=== PATIENT | female | born 1940 | race American Indian/Alaskan Native ===

== ENCOUNTER → 2017-04-12 | Outpatient (CLI) | payer MEDICARE, OTHER ==
[~2017-04-12] MED LIST: ASPI81CH PO; CALCIUM PO; IRON PO; METPRE4DP PO; NAPR500 PO; Norco 5-325 Ta1 EACH PO; PRAHYD1AE TOP; VITAMIN C PO; VITAMIN D PO
== END | disposition home or self-care (01) ==
LOC: LAB 16:18
DX: L03.213 Periorbital cellulitis (principal)
CPT/HCPCS: 87070; 87077; 87147; 87186; 87205

== ENCOUNTER → 2017-04-14 | Outpatient (CLI) | payer MEDICARE, OTHER | LOC: LAB SHORT 14:22 | DX: L03.213 Periorbital cellulitis (principal) | CPT/HCPCS: 87070; 87075; 87077; 87147; 87186; 87205 ==

== ENCOUNTER 2017-05-25 09:43 | Emergency (ER) | payer MEDICARE, OTHER ==
[~2017-05-25] VITALS: Ht 170.2 cm; Wt 66.7 kg
[~2017-05-25 09:43] MED LIST changes: -PRAHYD1AE TOP
[2017-05-25] MEDS ORDERED: PRAHYD1AE TOP (11:54)
== END 2017-05-25 12:24 | disposition home or self-care (01) ==
LOC: ER 09:43
DX: K62.3 Rectal prolapse (principal); Z88.8 Allergy status to other drugs, medicaments and biological substances; Z91.041 Radiographic dye allergy status

== ENCOUNTER 2018-08-04 19:23 | Emergency (ER) | payer MEDICARE, OTHER ==
[~2018-08-04] VITALS: Ht 170.2 cm; Wt 66.7 kg
[~2018-08-04 19:23] MED LIST changes: +PRAHYD1AE TOP
[2018-08-04] MEDS ORDERED: TOCO1000 PO (19:45)
[2018-08-04] MEDS ORDERED: ASPI81CH PO (19:45)
[2018-08-04] MEDS ORDERED: ALEVAZOL56.7 GM TOP (20:12)
== END 2018-08-04 20:17 | disposition home or self-care (01) ==
LOC: ER 19:23
DX: R21 Rash and other nonspecific skin eruption (principal); Z88.8 Allergy status to other drugs, medicaments and biological substances; Z91.041 Radiographic dye allergy status; Z79.899 Other long term (current) drug therapy; Z79.82 Long term (current) use of aspirin

== ENCOUNTER → 2019-03-08 | Outpatient (CLI) | payer MEDICARE, OTHER ==
[~2019-03-08] MED LIST changes: +ALEVAZOL56.7 GM TOP; +TOCO1000 PO
== END | disposition home or self-care (01) ==
LOC: LAB EV 13:32 → LAB SHORT 13:32
DX: L03.011 Cellulitis of right finger (principal)
CPT/HCPCS: 87070; 87075; 87077; 87147; 87186; 87205

== ENCOUNTER 2022-01-18 07:52 | Day surgery (SDC) | payer MEDICARE, OTHER ==
[~2022-01-18] VITALS: Ht 170.2 cm; Wt 59.9 kg
[~2022-01-18 07:52] MED LIST changes: +Oxybutynin Chlor5 M1 PO
--- NOTE | 2022-01-18 08:34 | NUR ---
01/18/22 0834 Eve Leger AT 0819 PLEDGET AT [id number]
== END 2022-01-18 09:41 | disposition home or self-care (01) ==
LOC: ORSCSDS 07:52
PROVIDERS: Ophthalmology
PROC: 08DJ3ZZ Extraction of Right Lens, Percutaneous Approach (ICD-10-PCS; principal; 2022-01-18 09:00)
DX: H25.13 Age-related nuclear cataract, bilateral (principal); Z79.82 Long term (current) use of aspirin; Z79.899 Other long term (current) drug therapy
CPT/HCPCS: J2001; J2250; J3010; J3301; J7040; V2632

== ENCOUNTER 2022-03-22 07:27 | Day surgery (SDC) | payer MEDICARE, OTHER ==
[~2022-03-22] VITALS: Ht 170.2 cm; Wt 61.3 kg
--- NOTE | 2022-03-22 08:26 | NUR ---
03/22/22 0826 Kim Womack AT 0814 PLEDGET [id number]
--- NOTE | 2022-03-22 09:19 | NUR ---
03/22/22 0919 Jasiel Obando IODINE PREPPED USED DURING CASE. PT HAD RECENT PREVIOUS CATARACT SURGERY AND IODINE WAS USED IN THAT CASE WITHOUT COMPLICATION.
== END 2022-03-22 09:52 | disposition home or self-care (01) ==
LOC: ORSCSDS 07:27
PROVIDERS: Ophthalmology
PROC: 08DK3ZZ Extraction of Left Lens, Percutaneous Approach (ICD-10-PCS; principal; 2022-03-22 09:00)
DX: H25.12 Age-related nuclear cataract, left eye (principal); Z96.1 Presence of intraocular lens; Z79.82 Long term (current) use of aspirin
CPT/HCPCS: J2001; J2250; J3010; J3301; J7040; V2632

== ENCOUNTER 2022-08-14 13:20 | Observation (INO) | payer MEDICARE, OTHER ==
[~2022-08-14] VITALS: Ht 172.7 cm; Wt 60.6 kg
[2022-08-14 14:04] LABS: BASOPHILS ABSOLUTE AUTO 0.03 K/mm3 (0.00-0.23); BASOPHILS PERCENT AUTO 1 % (0-2); EOSINOPHILS PERCENT AUTO 3 % (0-6); Hemoglobin 14.7 g/dL (11.5-16.0); IMMATURE GRAN ABSOLUTE AUTO 0.01 K/mm3 (0.00-0.10); IMMATURE GRAN PERCENT AUTO 0 % (0-1); LYMPHOCYTES ABSOLUTE AUTO 1.65 K/mm3 (0.84-5.20); LYMPHOCYTES PERCENT AUTO 44 % (21-46); MONOCYTES ABSOLUTE AUTO 0.43 K/mm3 (0.16-1.47); MONOCYTES PERCENT AUTO 12 % (4-13); Mean Corpuscular HGB 33.1 pg (26.0-34.0); Mean Corpuscular HGB Conc 33.4 g/dL (31.5-36.5); Mean Corpuscular Volume 99 fL (80-100); Mean Platelet Volume 12.2 fL (9.1-12.4); NEUTROPHILS ABSOLUTE AUTO 1.53 K/mm3 (1.96-9.15); NEUTROPHILS PERCENT AUTO 41 % (41-73); Platelet Count 137 K/mm3 (150-400); RDW Coefficient Variation 12.8 % (11.7-14.2); RDW Standard Deviation 46.7 fL (35.1-46.3); Red Blood Cell Count 4.44 M/mm3 (3.80-5.20); White Blood Cell Count 3.75 K/mm3 (4.00-11.30)
[2022-08-14 14:23] LABS: Albumin, Blood 3.9 g/dL (3.4-5.0); Albumin/Globulin Ratio 1.2 (0.8-1.8); Bilirubin, Total 0.5 mg/dL (0.1-1.0); Bun/Creatinine Ratio 29.4 (12.0-20.0); Calcium, Blood 9.5 mg/dL (8.5-10.1); Creatinine, Blood 0.65 mg/dL (0.40-1.00); Globulin, Blood 3.2 g/dL (2.2-4.0); Total Protein, Blood 7.1 g/dL (6.4-8.2)
[2022-08-14 15:12] LABS: Prothrombin Time Results 10.5 Sec (9.7-11.5)
[2022-08-14 16:17] LABS: Source, Urine Clean Catch
[2022-08-14 16:29] LABS: Appearance, Urine Clear (Clear); Bilirubin, Urine Neg (Neg); Blood, Urine 2+ (Neg); Glucose Qualitative, Urine Neg (Neg); Ketones, Urine Neg (Neg); Leukocyte Esterase, Urine Neg (Neg); Nitrite, Urine Neg (Neg); Protein, Urine Neg (Neg); Specific Gravity, Urine 1.005 (1.003-1.022); Urobilinogen, Urine NORM (Normal)
[2022-08-14 16:41] LABS: Color, Urine Pale Yellow (P-Yellow)
[2022-08-14 16:44] LABS: Bacteria Rare /hpf; Squamous Epithelial Cells Rare /hpf (Few); White Blood Cells, Urine 0-2 /hpf (0-5)
[2022-08-15 04:28] VITALS: BP 114/76
[2022-08-15 05:07] LABS: Hematocrit 39.8 % (33.0-51.0); Hemoglobin 13.4 g/dL (11.5-16.0); Mean Corpuscular HGB 32.9 pg (26.0-34.0); Mean Corpuscular HGB Conc 33.7 g/dL (31.5-36.5); Mean Corpuscular Volume 98 fL (80-100); Mean Platelet Volume 12.8 fL (9.1-12.4); Platelet Count 124 K/mm3 (150-400); RDW Coefficient Variation 12.7 % (11.7-14.2); RDW Standard Deviation 45.2 fL (35.1-46.3); Red Blood Cell Count 4.07 M/mm3 (3.80-5.20); White Blood Cell Count 2.94 K/mm3 (4.00-11.30)
--- NOTE | 2022-08-15 05:16 | NUR ---
SHIFT SUMMARY NO NEW ISSUES. PT REPORTED [place] WAS GONE. PT ARRIVED TO UNIT IN NO DISTRESS. PT DENIES DIZZINESS OR BLURRED VISION. PT NEURO'S ARE INTACT AND STABLE ON FEET. PT HAS BEEN SLEEPING FOR MOST OF SHIFT. CALL LIGHT IN REACH.
[2022-08-15 05:54] LABS: CHOL/HDL RATIO 2.4; Cholesterol 169 mg/dL (50-200); HDL Cholesterol 70 mg/dL (>39); LDL/HDL RATIO 1.2; Low Density Lipoprotein Chol 85 mg/dL (0-110); Triglycerides 72 mg/dL (30-160); Very Low Density Lipoprot Chol 14 mg/dL (6-32)
[2022-08-15 07:32] VITALS: BP 125/74
--- NOTE | 2022-08-15 10:43 | NUR ---
DISCHARGE NOTE- PT WAS GIVEN VERBAL AND WRITTEN DISCHARGE INSTRUCTIONS AND ACKNOWLEDGED UNDERSTANDING OF THEM. IV AND TELE DC'D AT THE TIME OF DISCHARGE EDUCATION. PT HAD NO FURTHER QUESTIONS AT THIS TIME AND DECLINED ASSISTANCE TO GET READY TO GO. PT CALLING HER FRIEND FOR A RIDE HOME NOW. INSTRUCTED HER TO PUSH THE CALL BUTTON ONCE HER FRIEND ARRIVES AND SHE WILL BE ESCORTED OUT VIA WC BY THE [employer]. NO CURRENT S&S OF DISTRESS NOTED.
== END 2022-08-15 11:43 | disposition home or self-care (01) ==
LOC: ER 13:20 → MEDS 13:21 → ENPENDDIS 08-15 10:05 → MEDS 08-15 11:43
PROVIDERS: Nurse Practitioner Acute Care; Physician Assistant; Student in an Organized Health Care Education/Training Program; ADMIT Student in an Organized Health Care Education/Training Program
DX: H53.462 Homonymous bilateral field defects, left side (principal); Z96.641 Presence of right artificial hip joint; Z91.041 Radiographic dye allergy status
CPT/HCPCS: 36415; 70450; 70551; 80053; 80061; 81001; 82947; 83036; 85025; 85027; 85610; 85651; 93005; 93010; 93880; 99285-25; A9270

== ENCOUNTER 2022-11-06 17:50 | Inpatient (IN) | payer MEDICARE, OTHER ==
[~2022-11-06] VITALS: Ht 165.1 cm; Wt 70.0 kg
[2022-11-06 18:38] LABS: BASOPHILS ABSOLUTE AUTO 0.04 K/mm3 (0.00-0.23); BASOPHILS PERCENT AUTO 1 % (0-2); EOSINOPHILS PERCENT AUTO 3 % (0-6); Hematocrit 40.8 % (33.0-51.0); Hemoglobin 13.7 g/dL (11.5-16.0); IMMATURE GRAN PERCENT AUTO 0 % (0-1); LYMPHOCYTES ABSOLUTE AUTO 1.22 K/mm3 (0.84-5.20); LYMPHOCYTES PERCENT AUTO 32 % (21-46); MONOCYTES ABSOLUTE AUTO 0.43 K/mm3 (0.16-1.47); MONOCYTES PERCENT AUTO 11 % (4-13); Mean Corpuscular HGB 32.9 pg (26.0-34.0); Mean Corpuscular HGB Conc 33.6 g/dL (31.5-36.5); Mean Corpuscular Volume 98 fL (80-100); Mean Platelet Volume 12.5 fL (9.1-12.4); NEUTROPHILS ABSOLUTE AUTO 1.99 K/mm3 (1.96-9.15); NEUTROPHILS PERCENT AUTO 53 % (41-73); Platelet Count 137 K/mm3 (150-400); RDW Coefficient Variation 13.7 % (11.7-14.2); RDW Standard Deviation 50.4 fL (35.1-46.3); Red Blood Cell Count 4.16 M/mm3 (3.80-5.20); White Blood Cell Count 3.78 K/mm3 (4.00-11.30)
[2022-11-06 18:46] LABS: Source, Urine Clean Catch
[2022-11-06 18:49] LABS: Appearance, Urine Hazy (Clear); Bilirubin, Urine Neg (Neg); Blood, Urine 2+ (Neg); Color, Urine Yellow (P-Yellow); Glucose Qualitative, Urine Neg (Neg); Ketones, Urine 1+ (Neg); Leukocyte Esterase, Urine Neg (Neg); Nitrite, Urine Neg (Neg); Protein, Urine 2+ (Neg); Specific Gravity, Urine 1.025 (1.003-1.022); Urobilinogen, Urine NORM (Normal)
[2022-11-06 19:04] LABS: Albumin, Blood 3.9 g/dL (3.4-5.0); Albumin/Globulin Ratio 1.4 (0.8-1.8); Bilirubin, Total 0.6 mg/dL (0.1-1.0); Bun/Creatinine Ratio 20.8 (12.0-20.0); Calcium, Blood 9.3 mg/dL (8.5-10.1); Creatinine, Blood 0.77 mg/dL (0.40-1.00); Globulin, Blood 2.7 g/dL (2.2-4.0); Total Protein, Blood 6.6 g/dL (6.4-8.2)
[2022-11-06 19:08] LABS: D-Dimer, Quantitative 3.53 mg/L FEU (0.00-0.52); International Normalized Ratio 1.11; Prothrombin Time Results 11.6 Sec (9.7-11.5)
[2022-11-06 19:18] LABS: Magnesium, Blood 2.1 mg/dL (1.6-2.4)
[2022-11-06 19:19] LABS: Amorphous Mod (0-Heavy); Bacteria Few /hpf; Mucus Light (0-Heavy); Squamous Epithelial Cells Few /hpf (Few); White Blood Cells, Urine 0-2 /hpf (0-5)
[2022-11-06 19:20] LABS: Phosphorus, Blood 3.5 mg/dL (2.5-4.9); Thyroid Stimulating Hormone 1.84 uIU/mL (0.360-4.800)
[2022-11-06] MEDS ORDERED: K-Dur10 MEQ PO (19:22)
[2022-11-06] MEDS ORDERED: TRIDERM28.4 GM TOP (19:22)
[2022-11-06] MEDS ORDERED: FUROSEMIDE20 MG PO (19:22)
[2022-11-06 19:31] LABS: Influenza A, PCR NEGATIVE (NEGATIVE); Influenza B, PCR NEGATIVE (NEGATIVE); Resp Syncytial Virus, PCR NEGATIVE (NEGATIVE); SARS-Cov-2 (COVID-19) PCR, MMC NEGATIVE (NEGATIVE)
[2022-11-06 22:01] VITALS: BP 126/94
[2022-11-07 03:58] VITALS: BP 118/89
[2022-11-07 05:15] LABS: BASOPHILS ABSOLUTE AUTO 0.03 K/mm3 (0.00-0.23); BASOPHILS PERCENT AUTO 1 % (0-2); EOSINOPHILS ABSOLUTE AUTO 0.13 K/mm3 (0.00-0.68); EOSINOPHILS PERCENT AUTO 5 % (0-6); Hematocrit 38.5 % (33.0-51.0); Hemoglobin 12.5 g/dL (11.5-16.0); IMMATURE GRAN PERCENT AUTO 0 % (0-1); LYMPHOCYTES ABSOLUTE AUTO 1.23 K/mm3 (0.84-5.20); LYMPHOCYTES PERCENT AUTO 51 % (21-46); MONOCYTES ABSOLUTE AUTO 0.35 K/mm3 (0.16-1.47); MONOCYTES PERCENT AUTO 15 % (4-13); Mean Corpuscular HGB 32.7 pg (26.0-34.0); Mean Corpuscular HGB Conc 32.5 g/dL (31.5-36.5); Mean Corpuscular Volume 101 fL (80-100); Mean Platelet Volume 12.9 fL (9.1-12.4); NEUTROPHILS ABSOLUTE AUTO 0.68 K/mm3 (1.96-9.15); NEUTROPHILS PERCENT AUTO 28 % (41-73); Platelet Count 113 K/mm3 (150-400); RDW Coefficient Variation 13.8 % (11.7-14.2); RDW Standard Deviation 50.7 fL (35.1-46.3); Red Blood Cell Count 3.82 M/mm3 (3.80-5.20); White Blood Cell Count 2.42 K/mm3 (4.00-11.30)
--- NOTE | 2022-11-07 05:33 | NUR ---
NO ACUTE CHANGES AT THIS TIME. PT IS AOX3, BUT SEEMS VERY TIRED. PT WAS ABLE TO BE A ONE PERSON TO BEDSIDE COMMODE AND DID WELL. PT APPEARS TO BE MOSTLY CONTENENT OF URING. PT USES CALL LIGHT APPROPRIATELY. NO DISTRESS NOTED AT THIS TIME WILL CONTINUE TO MONITOR.
[2022-11-07 05:38] LABS: Albumin, Blood 3.2 g/dL (3.4-5.0); Albumin/Globulin Ratio 1.5 (0.8-1.8); Bilirubin, Total 0.7 mg/dL (0.1-1.0); Bun/Creatinine Ratio 20.5 (12.0-20.0); Calcium, Blood 8.4 mg/dL (8.5-10.1); Creatinine, Blood 0.64 mg/dL (0.40-1.00); Globulin, Blood 2.2 g/dL (2.2-4.0); Magnesium, Blood 1.9 mg/dL (1.6-2.4); Potassium, Blood 3.8 mmol/L (3.5-5.5); Total Protein, Blood 5.4 g/dL (6.4-8.2)
[2022-11-07 05:57] LABS: BASOPHILS PERCENT MAN 0 % (0-2); EOSINOPHILS ABSOLUTE MAN 0.04 K/mm3 (0.00-0.68); EOSINOPHILS PERCENT MAN 2 % (0-6); LYMPHOCYTES PERCENT MAN 54 % (21-46); MONOCYTES ABSOLUTE MAN 0.19 K/mm3 (0.16-1.47); MONOCYTES PERCENT MAN 8 % (4-13); NEUTROPHILS ABSOLUTE MAN 0.87 K/mm3 (1.96-9.15); SEG NEUTROPHILS PERCENT MAN 36 % (41-73); TOTAL CELLS COUNTED 100
[2022-11-07 07:19] VITALS: BP 130/82
[2022-11-07 13:11] LABS: Source, Urine Clean Catch
[2022-11-07 13:26] LABS: Appearance, Urine Clear (Clear); Bilirubin, Urine Neg (Neg); Blood, Urine 2+ (Neg); Glucose Qualitative, Urine Neg (Neg); Ketones, Urine Neg (Neg); Leukocyte Esterase, Urine Neg (Neg); Nitrite, Urine Neg (Neg); Protein, Urine Neg (Neg); Specific Gravity, Urine 1.015 (1.003-1.022); Urobilinogen, Urine NORM (Normal)
[2022-11-07 13:46] LABS: Color, Urine Pale Yellow (P-Yellow)
[2022-11-07 13:48] LABS: Bacteria Few /hpf; Squamous Epithelial Cells Few /hpf (Few); White Blood Cells, Urine 0-2 /hpf (0-5)
[2022-11-07 15:36] VITALS: BP 105/77
[2022-11-07] MEDS ORDERED: ATOR10 PO (16:14)
[2022-11-07] MEDS ORDERED: ASPI81CH PO (16:14)
[2022-11-07] MEDS ORDERED: METO25ER PO (16:14)
[2022-11-07] MEDS ORDERED: XARELTO20 MG PO (16:15)
--- NOTE | 2022-11-07 16:25 | NUR ---
Pt resting in bed upon arrival. Primary AMANUEL Elliott going over D/C instructions. Brief supportive visit. Brief discussion regarding POLST and AD. Encourage Pt to discuss with family and consider completing. Provided Palliative Care contact information for any questions or concerns and instructed to discuss with PCP. Provided both AD and POLST. Pt and Primary AMANUEL Elliott report no concerns at this time. Ended visit to allow D/C education to continue. Palliative Care will remain available
--- NOTE | 2022-11-07 16:47 | NUR ---
PT AWAKE DURING SHIFT REPORT THIS AM, ADMITTED LAST NIGHT FOR APHASIA. SYMPTOMS RESOLVING AND PT ABLE TO SPEAK CLEARLY AND ANS APPROPRIATELY, WITH SPEECH AND THINKING CLEARING FURTHER THRU OUT THE MORNING. PT CLEARED BY SPEECH THERAPY AND ABLE TO WORK WITH PT/OT WELL. ECHO BEING DONE IN WHEN DR ERNST IN TO SEE PT. DR ERNST ALSO RETURNED A COUPLE OF TIMES LATER TO DISCUSS PLAN OF CARE. PT WANTING TO GO HOME AND REPORTED TO DR ERNST AND THIS RN THAT SHE HAD 2 NURSE FRIENDS TO ASSIST HER WHEN SHE GOT HOME. FRIEND NEELIMA CALLED TO PICK PT UP FOR RIDE HOME. MEDS FAXED TO [facility] PER PT REQUEST. PHARMACIST THEN IN TO PT AND REVIEWED NEW HOME MEDICATIONS. PT VERBALIZED UNDERSTANDING. MEDICATIONS AND D/C INSTRUCTIONS REVIEWED WITH PT AGAIN PRIOR TO LEAVING. IV SITES D/C'D WNL'S. PT ABLE TO DRESS HERSELF AND THEN ASSISTED OUT VIA W/C TO FRIEND NEELIMA, WAITING OUTSIDE. ALL BELONGINGS WENT WITH PT.
== END 2022-11-07 16:46 | disposition home or self-care (01) | DRG 69 ==
LOC: ER 17:50 → MEDS 17:51
PROVIDERS: Emergency Medicine; Student in an Organized Health Care Education/Training Program; ADMIT Student in an Organized Health Care Education/Training Program
DX: G45.9 Transient cerebral ischemic attack, unspecified (principal); R47.01 Aphasia; N39.0 Urinary tract infection, site not specified; I48.91 Unspecified atrial fibrillation; R79.1 Abnormal coagulation profile; G31.84 Mild cognitive impairment of uncertain or unknown etiology; I77.810 Thoracic aortic ectasia; R60.0 Localized edema; Z96.641 Presence of right artificial hip joint; D72.819 Decreased white blood cell count, unspecified; G43.909 Migraine, unspecified, not intractable, without status migrainosus; D69.6 Thrombocytopenia, unspecified; R79.89 Other specified abnormal findings of blood chemistry; E11.9 Type 2 diabetes mellitus without complications; Z20.822 Contact with and (suspected) exposure to COVID-19; Z79.82 Long term (current) use of aspirin; Z79.899 Other long term (current) drug therapy; Z79.01 Long term (current) use of anticoagulants; Z98.49 Cataract extraction status, unspecified eye; Z87.19 Personal history of other diseases of the digestive system; Z90.49 Acquired absence of other specified parts of digestive tract; Z98.890 Other specified postprocedural states; Z91.041 Radiographic dye allergy status; Z88.8 Allergy status to other drugs, medicaments and biological substances; Z60.2 Problems related to living alone
CPT/HCPCS: 0241U; 36415; 70450; 71046; 71250; 74176; 80053; 81001; 82947; 83605; 83735; 84100; 84443; 84484; 85025; 85379; 85520; 85610; 85730; 87040; 92523; 93005; 93010; 93306; 96365; 96366; 96367; 96375; 99285-25; A9270; G0378; J0696; J1644

== ENCOUNTER 2022-11-22 14:51 | Emergency (ER) | payer MEDICARE, OTHER ==
[~2022-11-22] VITALS: Ht 170.2 cm; Wt 63.5 kg
[~2022-11-22 14:51] MED LIST changes: +ATOR10 PO; +FUROSEMIDE20 MG PO; +K-Dur10 MEQ PO; +METO25ER PO; +TRIDERM28.4 GM TOP; +XARELTO20 MG PO
[2022-11-22] MEDS ORDERED: FUROSEMIDE20 MG PO (15:32)
[2022-11-22] MEDS ORDERED: K-Dur10 MEQ (15:32)
[2022-11-22 15:44] LABS: BASOPHILS ABSOLUTE AUTO 0.02 K/mm3 (0.00-0.23); BASOPHILS PERCENT AUTO 1 % (0-2); EOSINOPHILS ABSOLUTE AUTO 0.08 K/mm3 (0.00-0.68); EOSINOPHILS PERCENT AUTO 2 % (0-6); Hematocrit 40.9 % (33.0-51.0); Hemoglobin 13.5 g/dL (11.5-16.0); IMMATURE GRAN ABSOLUTE AUTO 0.01 K/mm3 (0.00-0.10); IMMATURE GRAN PERCENT AUTO 0 % (0-1); LYMPHOCYTES ABSOLUTE AUTO 1.41 K/mm3 (0.84-5.20); LYMPHOCYTES PERCENT AUTO 41 % (21-46); MONOCYTES ABSOLUTE AUTO 0.45 K/mm3 (0.16-1.47); MONOCYTES PERCENT AUTO 13 % (4-13); Mean Corpuscular HGB 33.1 pg (26.0-34.0); Mean Corpuscular Volume 100 fL (80-100); Mean Platelet Volume 12.5 fL (9.1-12.4); NEUTROPHILS ABSOLUTE AUTO 1.45 K/mm3 (1.96-9.15); NEUTROPHILS PERCENT AUTO 42 % (41-73); Platelet Count 131 K/mm3 (150-400); RDW Coefficient Variation 13.2 % (11.7-14.2); RDW Standard Deviation 48.3 fL (35.1-46.3); Red Blood Cell Count 4.08 M/mm3 (3.80-5.20); White Blood Cell Count 3.42 K/mm3 (4.00-11.30)
[2022-11-22 15:58] LABS: Albumin, Blood 3.8 g/dL (3.4-5.0); Albumin/Globulin Ratio 1.5 (0.8-1.8); Bilirubin, Total 0.8 mg/dL (0.1-1.0); Calcium, Blood 9.2 mg/dL (8.5-10.1); Creatinine, Blood 0.81 mg/dL (0.40-1.00); Globulin, Blood 2.6 g/dL (2.2-4.0); Potassium, Blood 4.2 mmol/L (3.5-5.5); Total Protein, Blood 6.4 g/dL (6.4-8.2)
[2022-11-22 17:57] LABS: Magnesium, Blood 2.1 mg/dL (1.6-2.4); Phosphorus, Blood 3.6 mg/dL (2.5-4.9)
[2022-11-22 18:45] VITALS: BP 119/94
== END 2022-11-22 19:20 | disposition home or self-care (01) ==
LOC: ER 14:51
PROVIDERS: Emergency Medicine; Physician Assistant
DX: I48.91 Unspecified atrial fibrillation (principal); E11.9 Type 2 diabetes mellitus without complications; Z88.8 Allergy status to other drugs, medicaments and biological substances; Z91.041 Radiographic dye allergy status; Z79.899 Other long term (current) drug therapy; Z79.01 Long term (current) use of anticoagulants; Z79.82 Long term (current) use of aspirin
CPT/HCPCS: 71046; 80053; 83735; 83880; 84100; 84484; 85025; 93005; 93010; 99285-25

== ENCOUNTER 2022-12-14 12:06 | Day surgery (SDC) | payer MEDICARE, OTHER ==
[2022-12-14] VITALS (14 sets, daily range): BP systolic 102–131; BP diastolic 78–103
[~2022-12-14] VITALS: Ht 170.2 cm; Wt 64.9 kg
[~2022-12-14 12:06] MED LIST changes: +K-Dur10 MEQ
--- NOTE | 2022-12-14 12:36 | NUR ---
PT TO ROOM VIA WHEEL CHAIR, ABLE TO STAND AND TRANSFER AND GET SELF DRESSED INTO GOWN. PLACED ON MERCHANDISING CONSULTANT, CONTINUES IN AFIB, HR LOW 100S. 20G IV PLACED TO RAC. NS INFUSING AT TKO. CURRENTLY ON RA.
--- NOTE | 2022-12-14 13:03 | NUR ---
NOELLE PROCEDURE ATTEMPTED BY DR. THORPE, ABORTED AFTER INABILITY TO EASILY PASS PROBE. PT. NOTED TO HAVE BLOOD TINGED SPUTUM. DROWSY, BUT DOES RESPOND TO VERBAL STIMULI. PLAN IS TO PROCEED WITH BEDSIDE ECHO AT THIS TIME. VSS, PT BACK TO ROOM AIR WITH SPO2 99%.
--- NOTE | 2022-12-14 13:23 | NUR ---
DR. THORPE BACK IN TO TALK WITH PT ABOUT PROCEDURE AND PLAN. PT. RESPONDS VERBALLY, ABLE TO SWALLOW AND TALK APPROPRIATELY AT THIS TIME. ECHO AT BEDSIDE.
--- NOTE | 2022-12-14 13:39 | NUR ---
PT TOLERATED SIPS OF WATER WELL, NO DIFFICULTY SWALLOWING. PT SUPPORT PERSON PAT AT BEDSIDE.
--- NOTE | 2022-12-14 14:02 | NUR ---
pt able to stand with out difficulty. able to get self dressed. pt. taken via wheelchair to exit with friend who is going to drive pt home. vss upon discharge, iv removed, catheter intact.,
== END 2022-12-14 22:53 | disposition home or self-care (01) ==
LOC: MHTC 12:06
DX: I48.91 Unspecified atrial fibrillation (principal)
CPT/HCPCS: 93308; 93312; 93321; 93325; 99152; A9270; J2250; J3010; J7030

== ENCOUNTER → 2023-03-14 | Outpatient (CLI) | payer MEDICARE, OTHER | LOC: LAB 15:36 → LAB SHORT 15:36 | DX: R31.9 Hematuria, unspecified (principal) | CPT/HCPCS: 87086 ==